=== PATIENT | female | born 1990 ===

== ENCOUNTER 2023-12-09 14:15 | Emergency (ER) | payer OTHER ==
[~2023-12-09] VITALS: Ht 172.7 cm; Wt 122.7 kg
[2023-12-09 14:31] VITALS: BP 153/84; PULSE 103; RESP 16; TEMP 98.8
[2023-12-09] MEDS ORDERED: PRAZ1 PO (14:38)
[2023-12-09] MEDS ORDERED: DULO20CA71 PO (14:38)
[2023-12-09] MEDS ORDERED: CETI-450 PO (14:38)
[2023-12-09] MEDS ORDERED: GABA-1216 PO (14:38)
[2023-12-09 15:12] LABS: COVID AG,FIA SOURCE NASAL SWAB
[2023-12-09 15:34] LABS: INFLUENZA TYPE A NEGATIVE FOR TYPE A (NEGATIVE); INFLUENZA TYPE B NEGATIVE FOR TYPE B (NEGATIVE); SARS-COV2 (COVID) ANTIGEN,FIA Negative (Negative)
[2023-12-09] MEDS ORDERED: GABA-1181 PO (15:44)
[2023-12-09] MEDS ORDERED: EPIN0.3P3 IM (15:44)
[2023-12-09] MEDS ORDERED: DULO-113 PO (15:44)
[2023-12-09] MEDS: ACETAMINOPHEN 500 MG TABLET PO ONE (16:01)
[2023-12-09] MEDS: GuaiFENesin/D-METHORPHAN [SUGAR-FREE] 200-20MG/10 ML SYRUP UDCUP PO ONE (16:01)
[2023-12-09] MEDS: IBUPROFEN 600 MG TABLET PO ONE (16:02)
== END 2023-12-09 16:22 | disposition home or self-care (01) ==
LOC: EMS 14:15
DX: S93.401A Sprain of unspecified ligament of right ankle, initial encounter (principal); J06.9 Acute upper respiratory infection, unspecified; M25.552 Pain in left hip; Z20.822 Contact with and (suspected) exposure to COVID-19; X58.XXXA Exposure to other specified factors, initial encounter; Y93.89 Activity, other specified; Y92.89 Other specified places as the place of occurrence of the external cause; Y99.8 Other external cause status
CPT/HCPCS: 87804; 99284; 73610-TC; Z7502; Z7610